=== PATIENT | male | born 1955 ===

== ENCOUNTER → 2019-08-02 | Outpatient (CLI) | payer OTHER ==
[2019-08-03 12:09] LABS: ABBOTT SARS COV-2 IGG AB Negative (Negative)
== END | disposition home or self-care (01) ==
LOC: LAB SHORT 08:37 → LAB 08:37
PROVIDERS: Family Medicine
DX: Z11.59 Encounter for screening for other viral diseases (principal); R68.83 Chills (without fever)
CPT/HCPCS: 86769